=== PATIENT | female | born 1975 | race Caucasian/White ===

== ENCOUNTER 2016-09-26 22:17 | Emergency (ER) | payer MEDICAID ==
[~2016-09-26] VITALS: Ht 154.9 cm; Wt 64.5 kg
[2016-09-26] MEDS ORDERED: IBUPROFEN 800 MG TABLET PO ONE (22:45)
[2016-09-27 00:38] VITALS: BP 160/100
== END 2016-09-27 00:39 | disposition home or self-care (01) ==
LOC: EMS 22:19
DX: S50.12XA Contusion of left forearm, initial encounter (principal); M25.512 Pain in left shoulder; V49.40XA Driver injured in collision with unspecified motor vehicles in traffic accident, initial encounter; Y93.89 Activity, other specified; Y92.481 Parking lot as the place of occurrence of the external cause; Y99.8 Other external cause status
CPT/HCPCS: 99284